=== PATIENT | female | born 2000 | race African-American/Black ===

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

== ENCOUNTER 2018-11-17 17:08 | Emergency (ER) | payer MEDICAID ==
[~2018-11-17] VITALS: Ht 160 cm; Wt 59.0 kg
[2018-11-17 20:55] LABS: CLARITY URINE CLEAR (CLEAR); COLOR URINE YELLOW (YELLOW); KETONES URINE 3+ (NEGATIVE); LEUKOCYTE ESTERASE URINE TRACE (NEGATIVE); NITRITE URINE NEGATIVE (NEGATIVE); OCCULT BLOOD URINE NEGATIVE (NEGATIVE); PROTEIN URINE NEGATIVE (NEGATIVE); SPECIFIC GRAVITY URINE 1.024 (1.005-1.030); UROBILINOGEN URINE 0.2 E.U./dL (0.2-1.0)
[2018-11-17 22:06] VITALS: BP 116/71
== END 2018-11-17 22:06 | disposition home or self-care (01) ==
LOC: ER 17:08
DX: N39.0 Urinary tract infection, site not specified (principal)
CPT/HCPCS: 81025; 99283

== ENCOUNTER 2020-09-23 19:15 | Emergency (ER) | payer MEDICAID ==
[~2020-09-23] VITALS: Ht 157.5 cm; Wt 53.8 kg
[2020-09-23 19:18] VITALS: BP 103/50
[2020-09-23] MEDS ORDERED: ONDANSETRON 4MG ODT PO ONE (19:45)
[2020-09-23] MEDS ORDERED: FAMOTIDINE 20MG TABLET PO ONE (19:45)
[2020-09-23 20:15] LABS: HEMATOCRIT. 38.9 % (36.0-48.0); HEMOGLOBIN. 12.9 g/dL (12.0-16.0); MEAN CORPUSCULAR HEMOGLOBIN 28.3 pg (28.0-32.0); MEAN CORPUSCULAR VOLUME 85.3 fL (81.0-99.0); MEAN PLATELET VOLUME 9.1 fl (7.4-10.4); PLATELET 291 x1000/uL (130-400); RED BLOOD CELL COUNT 4.57 mill/uL (4.2-5.4); RED CELL DISTRIBUTION WIDTH 13.4 % (11.6-14.6)
[2020-09-23 20:18] LABS: CLARITY URINE CLOUDY (CLEAR); COLOR URINE ORANGE (YELLOW); KETONES URINE 1+ (NEGATIVE); LEUKOCYTE ESTERASE URINE TRACE (NEGATIVE); NITRITE URINE NEGATIVE (NEGATIVE); OCCULT BLOOD URINE 3+ (NEGATIVE); PH URINE 5.5 (4.5-8.0); PROTEIN URINE 2+ (NEGATIVE); SPECIFIC GRAVITY URINE 1.033 (1.005-1.030)
[2020-09-23 20:22] LABS: CHLORIDE 102 mEq/L (98-107)
[2020-09-23 20:38] LABS: *BENZODIAZEPINES SCREEN URINE NEGATIVE (NEGATIVE); *COCAINE SCREEN URINE NEGATIVE (NEGATIVE); METHADONE URINE SCREEN NEGATIVE (NEGATIVE); OPIATES URINE SCREEN NEGATIVE (NEGATIVE)
[2020-09-23 20:39] LABS: *AMPHETAMINES SCREEN URINE NEGATIVE (NEGATIVE); *BARBITURATES SCREEN URINE NEGATIVE (NEGATIVE); PHENCYCLIDINE URINE SCREEN NEGATIVE (NEGATIVE)
[2020-09-23 20:43] LABS: CANNABINOID URINE SCREEN PRESUMTIVE POSITIVE (NEGATIVE)
[2020-09-23 20:50] LABS: HCG SCREEN NEGATIVE
[2020-09-23 21:05] LABS: PLATELET ESTIMATE NORMAL
== END 2020-09-23 21:05 | disposition home or self-care (01) ==
LOC: ER 19:15
DX: F12.10 Cannabis abuse, uncomplicated (principal); R11.2 Nausea with vomiting, unspecified
CPT/HCPCS: 36415; 80053; 80305; 81003; 83690; 84703; 85025; 99283; Q0162

== ENCOUNTER 2021-05-16 16:35 | Emergency (ER) | payer MEDICAID ==
[~2021-05-16] VITALS: Ht 157.5 cm; Wt 55.0 kg
[~2021-05-16 16:35] MED LIST: FAMO-135 MT; METO5SOL19 PO
[2021-05-16] MEDS ORDERED: ONDANSETRON HCL 4MG/2ML INJ IV STA (21:06)
[2021-05-16] MEDS ORDERED: SODIUM CHLORIDE 0.9% 1,000 ML IV ONE (21:15)
[2021-05-16 21:45] LABS: HEMATOCRIT. 39.1 % (36.0-48.0); HEMOGLOBIN. 13.5 g/dL (12.0-16.0); MEAN CORPUSCULAR HEMOGLOBIN 29.2 pg (28.0-32.0); MEAN CORPUSCULAR VOLUME 84.6 fL (81.0-99.0); MEAN PLATELET VOLUME 8.8 fl (7.4-10.4); PLATELET 332 x1000/uL (130-400); RED BLOOD CELL COUNT 4.62 mill/uL (4.2-5.4); RED CELL DISTRIBUTION WIDTH 13.4 % (11.6-14.6)
[2021-05-16 21:49] LABS: CHLORIDE 104 mEq/L (98-107)
[2021-05-16 22:14] LABS: PLATELET ESTIMATE NORMAL
[2021-05-16] MEDS ORDERED: METOCLOPRAMIDE HCL 10MG/2ML VIAL IV NR (23:30)
[2021-05-17] MEDS ORDERED: METO5TAB86 MT (00:03)
[2021-05-17 00:17] VITALS: BP 121/79
== END 2021-05-16 16:44 | disposition home or self-care (01) ==
LOC: ER 16:35
DX: R11.2 Nausea with vomiting, unspecified (principal); F12.10 Cannabis abuse, uncomplicated
CPT/HCPCS: 36415; 80053; 81025; 83690; 85025; 96361; 96374; 96375; 99284; J2405; J2765; J7030

== ENCOUNTER 2021-09-07 11:18 | Emergency (ER) | payer MEDICAID ==
[~2021-09-07] VITALS: Ht 157.5 cm; Wt 62.0 kg
[~2021-09-07 11:18] MED LIST changes: +METO5TAB86 MT
[2021-09-07 11:45] VITALS: BP 143/81
[2021-09-07] MEDS ORDERED: IBUPROFEN 600MG TABLET PO ONE (11:45)
[2021-09-07] MEDS ORDERED: FAMOTIDINE 20MG/2ML VIAL IV ONE (13:30)
[2021-09-07] MEDS ORDERED: METOCLOPRAMIDE HCL 10MG/2ML VIAL IV ONE (13:30)
[2021-09-07 13:35] LABS: HEMATOCRIT. 40.8 % (36.0-48.0); HEMOGLOBIN. 13.9 g/dL (12.0-16.0); MEAN CORPUSCULAR HEMOGLOBIN 28.7 pg (28.0-32.0); MEAN CORPUSCULAR VOLUME 84.1 fL (81.0-99.0); MEAN PLATELET VOLUME 8.8 fl (7.4-10.4); PLATELET 325 x1000/uL (130-400); RED BLOOD CELL COUNT 4.85 mill/uL (4.2-5.4); RED CELL DISTRIBUTION WIDTH 13.3 % (11.6-14.6)
[2021-09-07 13:49] LABS: HCG SCREEN NEGATIVE
[2021-09-07 14:12] LABS: CHLORIDE 103 mEq/L (98-107)
[2021-09-07 14:15] LABS: PLATELET ESTIMATE NORMAL
[2021-09-07 16:11] LABS: CLARITY URINE CLEAR (CLEAR); COLOR URINE YELLOW (YELLOW); KETONES URINE 4+ (NEGATIVE); LEUKOCYTE ESTERASE URINE NEGATIVE (NEGATIVE); NITRITE URINE NEGATIVE (NEGATIVE); OCCULT BLOOD URINE NEGATIVE (NEGATIVE); PROTEIN URINE 2+ (NEGATIVE); SPECIFIC GRAVITY URINE 1.028 (1.005-1.030); UROBILINOGEN URINE 0.2 E.U./dL (0.2-1.0)
== END 2021-09-07 18:04 | disposition home or self-care (01) ==
LOC: ER 11:18
DX: R07.89 Other chest pain (principal); R11.10 Vomiting, unspecified; F12.10 Cannabis abuse, uncomplicated
CPT/HCPCS: 36415; 71045; 80053; 81003; 84484; 84703; 85025; 93005; 96374; 96375; 99285; J2765; J3490; Z7610

== ENCOUNTER 2021-12-10 11:21 | Emergency (ER) | payer MEDICAID ==
[~2021-12-10] VITALS: Ht 157.5 cm; Wt 55.0 kg
[2021-12-10 11:25] VITALS: BP 131/102
[2021-12-10] MEDS ORDERED: ONDANSETRON HCL 4MG/2ML INJ IV STA (11:29)
[2021-12-10] MEDS ORDERED: MORPHINE SULFATE 4 MG/ML CPJ (NOT FOR IM USE) IV STA (11:29)
[2021-12-10] MEDS ORDERED: SODIUM CHLORIDE 0.9% 1,000 ML IV ONE (11:30)
[2021-12-10 12:21] LABS: BASOPHILS % 0.4 % (0.0-2.0); EOSINOPHILS % 0.1 % (0.0-5.0); HEMATOCRIT. 45.8 % (36.0-48.0); HEMOGLOBIN. 15.7 g/dL (12.0-16.0); LYMPHOCYTES % 16.1 % (20.0-50.0); MEAN CORPUSCULAR HEMOGLOBIN 29.1 pg (28.0-32.0); MEAN CORPUSCULAR VOLUME 84.8 fL (81.0-99.0); MEAN PLATELET VOLUME 8.5 fl (7.4-10.4); MONOCYTES % 7.8 % (2.0-8.0); NEUTROPHILS % 75.6 % (40.0-76.0); PLATELET 368 x1000/uL (130-400); RED CELL DISTRIBUTION WIDTH 13.1 % (11.6-14.6)
[2021-12-10 12:31] LABS: CHLORIDE 100 mEq/L (98-107)
[2021-12-10 12:44] LABS: HCG SCREEN NEGATIVE
[2021-12-10] MEDS ORDERED: KCL 20MEQ/100ML PREMIX 100 ML IV ONE (16:15)
[2021-12-10] MEDS ORDERED: POTASSIUM CHLORIDE 20MEQ/PACKET PO ONE (16:15)
[2021-12-10] MEDS ORDERED: MAGNESIUM 2 G PREMIX 50 ML IV ONE (16:15)
== END 2021-12-10 21:16 | disposition left against medical advice (07) ==
LOC: ER 11:21
DX: R07.89 Other chest pain (principal)
CPT/HCPCS: 36415; 71045; 80053; 83690; 84484; 84703; 85025; 85379; 99284; J7030